=== PATIENT | male | born 1990 | race American Indian/Alaskan Native ===

== ENCOUNTER 2018-01-09 15:51 | Emergency (ER) | payer SELFPAY ==
[2018-01-09 16:02] VITALS: BP 134/86
[2018-01-09] MEDS ORDERED: DECADRON IM ONE (16:13)
[2018-01-09] MEDS ORDERED: ALUM-MAG HYDROX-SIMETH 200-200-20MG/5ML PO ONE (16:14)
[2018-01-09] MEDS ORDERED: LIDOCAINE VISCOUS 2% MM NR (16:15)
--- NOTE | 2018-01-09 16:15 | Emergency Department Report ---
- General Chief Complaint: Upper Respiratory Infection Stated Complaint: SORE THROAT Time Seen by Provider: 01/09/18 16:13 Source: patient Mode of arrival: Ambulatory Limitations: No Limitations - History of Present Illness Initial Comments: 27-year-old male past medical history none presents with complaint of 4-5 days of worsening sore throat and cough. Awake alert and oriented 3. No audible wheezing or stridor. complaining of subjective fever chills and body aches. MD Complaint: fever, cough, sore throat Onset/Timin -: week(s) Severity: moderate Consistency: constant Improves With: nothing Associated Symptoms: fever, chills, headache, cough, ear pain Treatments Prior to Arrival: Ibuprofen - Related Data Previous Rx's Medication Instructions Recorded Last Taken Type Amoxicillin/Potassium Clav 1 each PO BID #20 tablet 01/09/18 Unknown Rx [Augmentin 875-125 Tablet] Dextromethorphan/Benzocaine 1 each PO Q4H PRN #1 box 01/09/18 Unknown Rx [Cepacol Sorethroat-Cough Quinn] Ibuprofen [Motrin] 800 mg PO Q8HR PRN #30 tablet 01/09/18 Unknown Rx ED Review of Systems ROS: Stated complaint: SORE THROAT Other details as noted in HPI Constitutional: fever, malaise. denies: chills Eyes: denies: eye pain, eye discharge, vision change ENT: ear pain. denies: throat pain Respiratory: denies: cough, shortness of breath, wheezing Cardiovascular: denies: chest pain, palpitations Endocrine: no symptoms reported Gastrointestinal: denies: abdominal pain, nausea, diarrhea Genitourinary: denies: urgency, dysuria Musculoskeletal: denies: back pain, joint swelling, arthralgia Skin: denies: rash, lesions Neurological: denies: headache, weakness, paresthesias Psychiatric: denies: anxiety, depression Hematological/Lymphatic: denies: easy bleeding, easy bruising ED Past Medical Hx - Social History Smoking Status: Never Smoker Substance Use Type: Alcohol - Medications Home Medications: Home Medications Medication Instructions Recorded Confirmed Last Taken Type Amoxicillin/Potassium Clav 1 each PO BID #20 tablet 01/09/18 Unknown Rx [Augmentin 875-125 Tablet] Dextromethorphan/Benzocaine 1 each PO Q4H PRN #1 box 03/10/18 Unknown Rx [Cepacol Sorethroat-Cough Quinn] Ibuprofen [Motrin] 800 mg PO Q8HR PRN #30 tablet 01/09/18 Unknown Rx ED Physical Exam - General Limitations: No Limitations General appearance: alert, in no apparent distress - Head Head exam: Present: atraumatic, normocephalic - Eye Eye exam: Present: normal appearance, PERRL, EOMI - ENT ENT exam: Present: mucous membranes moist - Expanded ENT Exam Expanded TM/Canal exam: Erythema: Right TM, Left TM, Bulging: Left TM, Right TM - Neck Neck exam: Present: normal inspection, full ROM - Respiratory Respiratory exam: Present: normal lung sounds bilaterally (lungs clear to auscultation bilaterally). Absent: respiratory distress - Cardiovascular Cardiovascular Exam: Present: regular rate, normal rhythm. Absent: systolic murmur, diastolic murmur, rubs, gallop - GI/Abdominal GI/Abdominal exam: Present: soft, normal bowel sounds - Rectal Rectal exam: Present: deferred - Extremities Exam Extremities exam: Present: normal inspection - Back Exam Back exam: Present: normal inspection - Neurological Exam Neurological exam: Present: alert, oriented X3, CN II-XII intact, normal gait - Psychiatric Psychiatric exam: Present: normal affect, normal mood - Skin Skin exam: Present: warm, dry, intact, normal color. Absent: rash ED Course Vital Signs 01/09/18 15:56 Temperature 99.1 F Pulse Rate 91 H Blood Pressure 134/86 O2 Sat by Pulse 98 Oximetry ED Medical Decision Making - Medical Decision Making A/P: Bilateral otitis media 1-Motrin when necessary, throat lozenges 2-10 day course of Augmentin 3-follow-up with primary care doctor 4- strep test and x-ray unremarkable Critical care attestation.: If time is entered above; I have spent that time in minutes in the direct care of this critically ill patient, excluding procedure time. ED Disposition Clinical Impression: Otitis media Qualifiers: Otitis media type: suppurative Chronicity: acute Laterality: bilateral Recurrence: not specified as recurrent Spontaneous tympanic membrane rupture: without spontaneous rupture Qualified Code(s): H66.003 - Acute suppurative otitis media without spontaneous rupture of ear drum, bilateral Disposition: - TO HOME OR SELFCARE Is pt being admited?: No Does the pt Need Aspirin: No Condition: Stable Instructions: Otitis Media (ED) Prescriptions: Amoxicillin/Potassium Clav [Augmentin 875-125 Tablet] 1 each PO BID #20 tablet Dextromethorphan/Benzocaine [Cepacol Sorethroat-Cough Quinn] 1 each PO Q4H PRN #1 box PRN Reason: Sore Throat Ibuprofen [Motrin] 800 mg PO Q8HR PRN #30 tablet PRN Reason: Headache Referrals: PRIMARY CARE, [Primary Care Provider] - 3-5 Days [facility] [Outside] - 3-5 Days [facility] [Outside] - 3-5 Days Forms: Work/School Release Form(ED) Time of Disposition: 16:54
--- NOTE | 2018-01-09 16:48 | XRay Report ---
FINAL REPORT EXAM: XR CHEST ROUTINE 2V HISTORY: cough, fever, chills TECHNIQUE: Two view chest PA and lateral PRIORS: None. FINDINGS: Cardiac and mediastinal contours are unremarkable. No focal pulmonary infiltrate is identified. No pleural fluid collection seen. Pulmonary vasculature is unremarkable. IMPRESSION: Negative two-view chest
== END 2018-01-09 17:09 | disposition home or self-care (01) ==
LOC: ED 15:51
DX: H66.003 Acute suppurative otitis media without spontaneous rupture of ear drum, bilateral (principal)
CPT/HCPCS: 71046; 87116; 87430; 96372; 99283; J1100

== ENCOUNTER 2018-01-11 13:31 | Emergency (ER) | payer SELFPAY ==
[2018-01-11 13:57] VITALS: BP 128/88
== END 2018-01-11 17:34 | disposition left against medical advice (07) ==
LOC: ED 13:31
DX: H92.09 Otalgia, unspecified ear (principal); Z53.21 Procedure and treatment not carried out due to patient leaving prior to being seen by health care provider

== ENCOUNTER 2018-01-15 05:21 | Emergency (ER) | payer SELFPAY | END 2018-01-15 08:00 | disposition left against medical advice (07) | LOC: ED 05:21 | DX: H92.09 Otalgia, unspecified ear (principal); Z53.21 Procedure and treatment not carried out due to patient leaving prior to being seen by health care provider ==